=== PATIENT | female | born 1995 | race Caucasian/White ===

== ENCOUNTER 2017-09-18 18:37 | Emergency (ER) | payer MEDICAID ==
[~2017-09-18] VITALS: Ht 160 cm; Wt 90.0 kg
[~2017-09-18 18:37] MED LIST: ALBUTEROL SUL0.083 % IN; ALBUTEROL0.083 % IN; ALBUTEROL2.5 MG/3 M IN; BACTRIM DS1 TAB OR; BACTRIM DS1 TAB PO; BLEPHAMIDE OU; CEPHALEXIN500 M1 OR; CIPRO500 MG OR; CLARITIN5 MG OR; CROMOLYN SOD4 % OP; DOXYCYCL HYC100 MG OR; DUONEB IN; DYAZIDE1 CAP PO; FLONASE SPRAY50 MCG; FLOVENT DISK250 MCG; FLOVENT DISK250 MCG IN; FLOVENT HFA220 MCG IN; IBUPROFEN600 MG PO; IPRATROPIU0.5 MG/3 M IN; KEFLEX500 MG PO; LORTAB 10 PO; LORTAB 7.57.5 MG PO; MACRODANTIN100 MG PO; MEDDOSEPAK OR; MEDDOSEPAK PO; NAPROSYN500 MG PO; NO; PHENERGAN SUPP RE; PREDNISONE20 MG OR; PROAIR HFA IN; SINGULAIR10 MG OR; VENTOLIN HFA IN; ZITHROMAX250 MG OR; ZITHROMAX250 MG PO; ZPAK OR; ZPAK PO
[2017-09-18] MEDS ORDERED: ALBUTEROL SUL0.083 % IN (20:23)
[2017-09-18 20:29] VITALS: BP 128/72
== END 2017-09-18 20:41 | disposition home or self-care (01) | DRG 781 ==
LOC: ED 18:37
DX: O26.891 Other specified pregnancy related conditions, first trimester (principal); J45.909 Unspecified asthma, uncomplicated; Z3A.10 10 weeks gestation of pregnancy

== ENCOUNTER 2017-09-24 19:16 | Emergency (ER) | payer MEDICAID ==
[~2017-09-24] VITALS: Ht 160 cm; Wt 90.0 kg
--- NOTE | 2017-09-24 19:50 | NUR ---
BREATHING TREATMENT GIVEN. BREATHING TECH. FOR GOOD DEPOSITION TO THE LUNGS.
[2017-09-24] MEDS ORDERED: ZITHROMAX250 MG PO (20:10)
[2017-09-24 20:29] VITALS: BP 137/61
== END 2017-09-24 20:30 | disposition home or self-care (01) | DRG 781 ==
LOC: ED 19:16
DX: O99.511 Diseases of the respiratory system complicating pregnancy, first trimester (principal); J02.9 Acute pharyngitis, unspecified; J45.909 Unspecified asthma, uncomplicated; Z3A.11 11 weeks gestation of pregnancy

== ENCOUNTER 2018-02-28 12:15 | Emergency (ER) | payer OTHER ==
[~2018-02-28] VITALS: Ht 160 cm; Wt 116.0 kg
[2018-02-28] MEDS ORDERED: PROAIR HFA108 MCG/AC IN (12:24)
[2018-02-28] MEDS ORDERED: AUGMENTIN875TAB PO (12:36)
[2018-02-28] MEDS ORDERED: LORTAB 5/3255 MG PO (12:36)
[2018-02-28 12:40] VITALS: BP 128/82
== END 2018-02-28 12:40 | disposition home or self-care (01) | DRG 159 ==
LOC: ED 12:15
DX: K04.7 Periapical abscess without sinus (principal); K03.81 Cracked tooth; K08.89 Other specified disorders of teeth and supporting structures; O99.513 Diseases of the respiratory system complicating pregnancy, third trimester; J45.909 Unspecified asthma, uncomplicated; Z3A.35 35 weeks gestation of pregnancy

== ENCOUNTER 2018-06-19 10:50 | Emergency (ER) | payer OTHER ==
[~2018-06-19] VITALS: Ht 160 cm; Wt 120.0 kg
[~2018-06-19 10:50] MED LIST changes: +AUGMENTIN875TAB PO; +LORTAB 5/3255 MG PO; +PROAIR HFA108 MCG/AC IN
[2018-06-19] MEDS ORDERED: FLOVENT DI50 MCG/BLI (11:19)
[2018-06-19] MEDS ORDERED: PREDNISONE50 MG PO ×2 (12:11→12:50)
[2018-06-19] MEDS ORDERED: DUONEB IN ×2 (12:41→12:50)
[2018-06-19 12:44] VITALS: BP 142/78
== END 2018-06-19 12:52 | disposition home or self-care (01) ==
LOC: ED 10:50
DX: J45.901 Unspecified asthma with (acute) exacerbation (principal); Z91.14 Patient's other noncompliance with medication regimen; R06.02 Shortness of breath

== ENCOUNTER 2018-07-15 11:51 | Emergency (ER) | payer OTHER ==
[~2018-07-15] VITALS: Ht 160 cm; Wt 120.0 kg
[~2018-07-15 11:51] MED LIST changes: +FLOVENT DI50 MCG/BLI; +PREDNISONE50 MG PO
[2018-07-15] MEDS ORDERED: ZPAK PO (12:21)
[2018-07-15] MEDS ORDERED: DUONEB IN (12:21)
[2018-07-15] MEDS ORDERED: PREDNISONE50 MG PO (12:21)
[2018-07-15 12:30] VITALS: BP 137/65
== END 2018-07-15 12:35 | disposition home or self-care (01) ==
LOC: ED 11:51
DX: J45.901 Unspecified asthma with (acute) exacerbation (principal); R06.02 Shortness of breath; R06.2 Wheezing

== ENCOUNTER 2018-10-16 09:53 | Emergency (ER) | payer OTHER ==
[~2018-10-16] VITALS: Ht 160 cm; Wt 91.0 kg
[2018-10-16 10:52] LABS: IMMATURE GRANULOCYTES 0.3 % (0.0-5.0); MEAN CELL VOLUME 93.3 fL CALC (80.0-100.0); MEAN CORPUSCULAR HGB 29.7 pG CALC (26.0-32.0); MEAN CORPUSCULAR HGB CONC 31.9 g/L CALC (32.0-36.0); NEUT# 8.88 thou/uL (2.00-7.15); RED BLOOD COUNT 4.17 mill/uL (4.20-5.60); RED CELL DISTRI WIDTH 14.2 % (11.5-15.5)
[2018-10-16 10:57] LABS: HEMATOCRIT 38.9 % (37.0-47.0); HEMOGLOBIN 12.4 g/dl (12.0-16.0)
[2018-10-16 11:18] LABS: ANION GAP 12 (6-22 (CALC)); BILIRUBIN, TOTAL 0.8 mg/dL (0.0-1.4); BUN 9 mg/dL (7-17); BUN/CREATININE RATIO 15 (12-20 (CALC)); CARBON DIOXIDE 23 mmol/l (22-30); CHLORIDE 108 mmol/l (95-108); CREATININE 0.6 mg/dL (0.5-1.0); GFR > 60 ML/MIN (>=60 (CALC)); GFR FOR AFR.AMER. > 60 ML/MIN (>=60 (CALC)); POTASSIUM 4.3 mmol/l (3.5-5.1); SGOT/AST 16 u/l (14-36); SODIUM 138 mmol/l (137-146)
[2018-10-16 11:26] LABS: ALBUMIN 3.9 g/dL (3.2-5.0); ALKALINE PHOSPHATASE 36 u/l (38-126)
[2018-10-16] MEDS ORDERED: MEDDOSEPAK PO (11:40)
[2018-10-16] MEDS ORDERED: CEPHALEXIN500 M1 PO (11:40)
[2018-10-16 12:15] VITALS: BP 128/75
== END 2018-10-16 12:15 | disposition home or self-care (01) ==
LOC: ED 09:53
PROVIDERS: Emergency Medicine
DX: J45.909 Unspecified asthma, uncomplicated (principal); R06.02 Shortness of breath; R50.9 Fever, unspecified; R05 Cough

== ENCOUNTER 2019-05-05 22:21 | Emergency (ER) | payer OTHER ==
[~2019-05-05] VITALS: Ht 160 cm; Wt 111.2 kg
[~2019-05-05 22:21] MED LIST changes: +CEPHALEXIN500 M1 PO
[2019-05-05] MEDS ORDERED: PROAIR HFA108 MCG/AC IN (22:44)
[2019-05-05] MEDS ORDERED: DUONEB IN (22:45)
--- NOTE | 2019-05-05 23:00 | NUR ---
BREATHING TREATMENT GIVEN BACK TO BACK. BREATHING TECH. FOR GOOD DEPOSITION TO THE LUNGS.
[2019-05-05] MEDS ORDERED: PROAIR HFA108 MCG/AC (23:28)
[2019-05-05] MEDS ORDERED: COMBIVENT RESPIMAT IN (23:29)
[2019-05-05] MEDS ORDERED: PREDNISONE50 MG PO (23:39)
[2019-05-05] MEDS ORDERED: FLOVENT HF110 MCG/AC IN (23:39)
[2019-05-05] MEDS ORDERED: ALBUTEROL SUL0.083 % IN (23:39)
[2019-05-05] MEDS ORDERED: DOXYCYCL HYC100 MG PO (23:39)
[2019-05-05 23:52] VITALS: BP 104/56
[2019-05-06] MEDS ORDERED: PREDNISONE50 MG PO (10:07)
[2019-05-06] MEDS ORDERED: FLOVENT HF110 MCG/AC IN (10:07)
[2019-05-06] MEDS ORDERED: DOXYCYCL HYC100 MG PO (10:07)
== END 2019-05-05 23:52 | disposition home or self-care (01) ==
LOC: ED 22:21
DX: J20.9 Acute bronchitis, unspecified (principal); J45.901 Unspecified asthma with (acute) exacerbation; R50.9 Fever, unspecified; R06.02 Shortness of breath; R06.2 Wheezing

== ENCOUNTER 2023-05-02 20:09 | Emergency (ER) | payer OTHER ==
[~2023-05-02] VITALS: Ht 160 cm; Wt 99.7 kg
[~2023-05-02 20:09] MED LIST changes: +COMBIVENT RESPIMAT IN; +DOXYCYCL HYC100 MG PO; +FLOVENT HF110 MCG/AC IN; +PROAIR HFA108 MCG/AC
[2023-05-02] MEDS ORDERED: TRAMADOL HCL50 MG PO (21:23)
[2023-05-02] MEDS ORDERED: TRIAMCINOLON0.13 EX (21:23)
[2023-05-02] MEDS ORDERED: VOLTAREN - GENE75 MG PO (21:23)
[2023-05-02 21:30] VITALS: BP 126/68
== END 2023-05-02 21:38 | disposition home or self-care (01) ==
LOC: ED 20:09
DX: T63.431A Toxic effect of venom of caterpillars, accidental (unintentional), initial encounter (principal); J45.909 Unspecified asthma, uncomplicated

== ENCOUNTER 2023-10-23 08:19 | Emergency (ER) | payer SELFPAY ==
[~2023-10-23] VITALS: Ht 160 cm; Wt 116.4 kg
[~2023-10-23 08:19] MED LIST changes: +TRAMADOL HCL50 MG PO; +TRIAMCINOLON0.13 EX; +VOLTAREN - GENE75 MG PO
[2023-10-23] MEDS ORDERED: PROVENTIL0.083 % IN (11:45)
[2023-10-23] MEDS ORDERED: ALBUTEROL108 MCG/AC INHW/SPAC (11:45)
[2023-10-23] MEDS ORDERED: BUDESONID2 IN (11:45)
[2023-10-23 11:59] VITALS: BP 118/78
[2023-10-24] MEDS ORDERED: LAMICTAL150 M1 PO (06:07)
[2023-10-24] MEDS ORDERED: XANAX1 MG PO (06:08)
[2023-10-24] MEDS ORDERED: PREDNISONE50 MG PO (07:24)
[2023-10-24] MEDS ORDERED: IPRATROPIU0.5 MG/3 M IN (07:24)
[2023-10-24] MEDS ORDERED: ZPAK PO (07:24)
== END 2023-10-23 12:00 | disposition home or self-care (01) | DRG 203 ==
LOC: ED 08:19
DX: J45.909 Unspecified asthma, uncomplicated (principal); B34.9 Viral infection, unspecified

== ENCOUNTER 2023-10-24 05:51 | Emergency (ER) | payer SELFPAY ==
[2023-10-24] VITALS (7 sets, daily range): BP systolic 97–120; BP diastolic 53–85
[~2023-10-24] VITALS: Ht 160 cm; Wt 99.7 kg
[~2023-10-24 05:51] MED LIST changes: +ALBUTEROL108 MCG/AC INHW/SPAC; +BUDESONID2 IN; +PROVENTIL0.083 % IN
[2023-10-24] MEDS ORDERED: LAMICTAL150 M1 PO (06:07)
[2023-10-24] MEDS ORDERED: XANAX1 MG PO (06:08)
[2023-10-24 06:57] LABS: EOS% 0.2 % (0-8); HEMATOCRIT 40.1 % (37.0-47.0); HEMOGLOBIN 12.6 g/dl (12.0-16.0); IMMATURE GRANULOCYTES 0.2 % (0.0-5.0); LYMPH% 10.7 % (15-41); MEAN CELL VOLUME 100.5 fL CALC (80.0-100.0); MEAN CORPUSCULAR HGB 31.6 pG CALC (26.0-32.0); MEAN CORPUSCULAR HGB CONC 31.4 g/dL CAL (32.0-36.0); NEUT# 4.86 thou/uL (2.00-7.15); NEUT% 80.9 % (42-76); RED BLOOD COUNT 3.99 mill/uL (4.20-5.60); RED CELL DISTRI WIDTH 12.5 % (11.5-15.5)
[2023-10-24] MEDS ORDERED: PREDNISONE50 MG PO (07:24)
[2023-10-24] MEDS ORDERED: IPRATROPIU0.5 MG/3 M IN (07:24)
[2023-10-24] MEDS ORDERED: ZPAK PO (07:24)
== END 2023-10-24 07:46 | disposition home or self-care (01) | DRG 203 ==
LOC: ED 05:51
PROVIDERS: Family Medicine
DX: J45.901 Unspecified asthma with (acute) exacerbation (principal)
CPT/HCPCS: J3475

== ENCOUNTER 2023-12-01 17:43 | Emergency (ER) | payer OTHER ==
[~2023-12-01] VITALS: Ht 160 cm; Wt 104.3 kg
[~2023-12-01 17:43] MED LIST changes: +LAMICTAL150 M1 PO; +XANAX1 MG PO
[2023-12-01 18:03] VITALS: BP 125/76
[2023-12-01] MEDS ORDERED: IBUPROFEN600 MG PO (21:00)
[2023-12-01 21:08] VITALS: BP 113/86
== END 2023-12-01 21:11 | disposition home or self-care (01) | DRG 552 ==
LOC: ED 17:43
DX: M54.6 Pain in thoracic spine (principal); M54.50 Low back pain, unspecified; J45.909 Unspecified asthma, uncomplicated; V49.40XA Driver injured in collision with unspecified motor vehicles in traffic accident, initial encounter

== ENCOUNTER 2024-07-04 19:23 | Emergency (ER) | payer OTHER ==
[~2024-07-04] VITALS: Ht 165.1 cm; Wt 118.0 kg
[~2024-07-04 19:23] MED LIST changes: +ALPRAZOLAM PO; +OZEMPIC; +PHENTERMINE37.5 MG PO; +SUBVENITE100 MG PO
[2024-07-04] MEDS ORDERED: BACTROBAN TOP (19:49)
[2024-07-04] MEDS ORDERED: MUPIROCIN (PSEUDOMONAS FLUORES 22 GM/TUBE TUBE TOP ONE (19:50)
[2024-07-04 20:04] VITALS: BP 147/90
== END 2024-07-04 20:04 | disposition home or self-care (01) | DRG 921 ==
LOC: ED 19:23
DX: T81.31XA Disruption of external operation (surgical) wound, not elsewhere classified, initial encounter (principal); J45.909 Unspecified asthma, uncomplicated; Y83.9 Surgical procedure, unspecified as the cause of abnormal reaction of the patient, or of later complication, without mention of misadventure at the time of the procedure

== ENCOUNTER 2024-07-09 16:19 | Emergency (ER) | payer OTHER ==
[~2024-07-09] VITALS: Ht 165.1 cm; Wt 127.0 kg
[~2024-07-09 16:19] MED LIST changes: +BACTROBAN TOP
[2024-07-09 16:37] VITALS: BP 134/73
[2024-07-09] MEDS ORDERED: methylPREDNISolone SODIUM SUCC 125 MG/2 ML SDV IV ONE (16:55)
[2024-07-09] MEDS ORDERED: IPRATROPIUM-Albuterol 0.5MG-2.5MG/3 ML NEB ONE ×2 (17:00)
[2024-07-09 17:01] VITALS: BP 122/75
[2024-07-09 17:22] LABS: BASO% 0.3 % (0-3); EOS% 7.3 % (0-8); HEMATOCRIT 37.2 % (37.0-47.0); HEMOGLOBIN 11.7 g/dl (12.0-16.0); IMMATURE GRANULOCYTES 0.1 % (0.0-5.0); LYMPH% 18.2 % (15-41); MEAN CELL VOLUME 98.2 fL CALC (80.0-100.0); MEAN CORPUSCULAR HGB 30.9 pG CALC (26.0-32.0); MEAN CORPUSCULAR HGB CONC 31.5 g/dL CAL (32.0-36.0); MONO% 4.6 % (2-13); NEUT# 6.14 thou/uL (2.00-7.15); NEUT% 69.5 % (42-76); RED BLOOD COUNT 3.79 mill/uL (4.20-5.60); RED CELL DISTRI WIDTH 12.6 % (11.5-15.5)
[2024-07-09 17:36] LABS: BILIRUBIN, TOTAL 0.4 mg/dL (0.02-1.3); CREATININE 0.7 mg/dL (0.5-1.0); TOTAL PROTEIN 6.8 g/dL (6.3-8.2)
[2024-07-09 17:38] LABS: POTASSIUM 3.7 mmol/l (3.5-5.1)
[2024-07-09] MEDS ORDERED: HYDROcodone 5 MG/Acetaminophen 325 MG/COMBO PO ONE (17:50)
[2024-07-09] MEDS ORDERED: NEBULIZER PO (17:52)
[2024-07-09] MEDS ORDERED: FLUTICASONE P PO (17:52)
[2024-07-09] MEDS ORDERED: VENTOLIN HFA108 MCG PO (17:52)
[2024-07-09] MEDS ORDERED: ALL DAY10 MG PO (17:52)
[2024-07-09 18:14] VITALS: BP 122/75
== END 2024-07-09 18:15 | disposition home or self-care (01) | DRG 203 ==
LOC: ED 16:19
PROVIDERS: Family Medicine
DX: J45.901 Unspecified asthma with (acute) exacerbation (principal); T80.89XA Other complications following infusion, transfusion and therapeutic injection, initial encounter; M79.642 Pain in left hand; Y84.8 Other medical procedures as the cause of abnormal reaction of the patient, or of later complication, without mention of misadventure at the time of the procedure; Y92.230 Patient room in hospital as the place of occurrence of the external cause

== ENCOUNTER 2024-10-18 04:36 | Emergency (ER) | payer OTHER ==
[2024-10-18] VITALS (11 sets, daily range): BP systolic 120–145; BP diastolic 65–84
[~2024-10-18] VITALS: Ht 165.1 cm; Wt 117.0 kg
[~2024-10-18 04:36] MED LIST changes: +ALL DAY10 MG PO; +ALPRAZOLA PO; -ALPRAZOLAM PO; +FLUTICASONE P PO; +NAPROXEN500 MG PO; +NEBULIZER PO; +VENTOLIN HFA108 MCG PO
[2024-10-18] MEDS ORDERED: methylPREDNISolone SODIUM SUCC 125 MG/2 ML SDV IM ONE (04:50)
[2024-10-18] MEDS ORDERED: ALBUTEROL SULFATE 2.5 MG VIAL NEB ONE (04:50)
[2024-10-18] MEDS ORDERED: ALBUTEROL SULFATE 2.5 MG VIAL IN ONE (06:05)
[2024-10-18] MEDS ORDERED: PREDNISONE20 MG PO (06:49)
[2024-10-18] MEDS ORDERED: VENTOLIN HFA108 MCG PO (06:49)
== END 2024-10-18 07:00 | disposition home or self-care (01) | DRG 203 ==
LOC: ED 04:36
DX: J45.901 Unspecified asthma with (acute) exacerbation (principal)

== ENCOUNTER 2025-01-22 18:26 | Emergency (ER) | payer OTHER ==
[~2025-01-22] VITALS: Ht 165.1 cm; Wt 117.0 kg
[~2025-01-22 18:26] MED LIST changes: +PREDNISONE20 MG PO
[2025-01-22] MEDS ORDERED: methylPREDNISolone SODIUM SUCC 125 MG/2 ML SDV IM ONE (19:00)
[2025-01-22] MEDS ORDERED: PREDNISONE20 MG PO (19:47)
[2025-01-22] MEDS ORDERED: BROMPHEN/PSEUDO1 SY1 PO (19:47)
[2025-01-22 20:00] VITALS: BP 129/79
== END 2025-01-22 20:00 | disposition home or self-care (01) ==
LOC: ED 18:26
DX: B34.9 Viral infection, unspecified (principal); J45.909 Unspecified asthma, uncomplicated; Z20.822 Contact with and (suspected) exposure to COVID-19